=== PATIENT | male | born 1950 | race African-American/Black ===

== ENCOUNTER 2018-05-16 09:44 | Emergency (ER) | payer OTHER ==
[~2018-05-16] VITALS: Ht 177.8 cm; Wt 69.0 kg
[~2018-05-16 09:44] MED LIST: AMLODIPINE BESY10 MG; ASPIR 8181 MG PO; CARVEDILOL12.5 MG PO; COZAAR 25MG TAB25 M1 PO; NORCO 5-325 TA1 EACH PO; PENICILLIN V P500 MG PO; PREDNISONE50 MG PO; TESSALON PERLE100 MG PO; ZOCOR 10 MG TAB10 MG PO
[2018-05-16] MEDS ORDERED: CENTRUM SILVER1 EAC4 PO (09:57)
[2018-05-16 10:21] LABS: BASOPHILS 0.7 % (0.0-2.0); EOSINOPHILS 0.2 % (0.0-3.0); HEMATOCRIT 44.4 % (42.0-52.0); HEMOGLOBIN 15.3 gm/dL (14.0-18.0); MCH 30.3 pg (26.0-34.0); MCHC 34.4 g/dL (28.0-37.0); MCV 88.1 fL (80.0-100.0); MONOCYTES 9.5 % (1.0-8.0); PLATELET COUNT 242 thou/uL (150-400); POLYS 71.6 % (36.0-66.0); RBC 5.04 mil/uL (4.50-6.00); RDW 13.1 % (10.5-14.5)
[2018-05-16 10:29] LABS: URINE BILIRUBIN NEGATIVE (Negative); URINE BLOOD 1+ (Negative); URINE CLARITY CLEAR; URINE COLOR YELLOW; URINE GLUCOSE-RANDOM* NEGATIVE (Negative); URINE KETONES NEGATIVE (Negative); URINE LEUKOCYTES-REFLEX NEGATIVE (Negative); URINE NITRITE-REFLEX NEGATIVE (Negative); URINE PROTEIN (DIPSTICK) 1+ (Negative); URINE SPECIFIC GRAVITY 1.025 (1.005-1.035); URINE UROBILINOGEN 0.2 E.U./dl (0.2-1.0)
[2018-05-16 10:34] LABS: CALCIUM 9.7 mg/dL (8.5-10.1); CREATININE 1.4 mg/dL (0.7-1.3); POTASSIUM 3.5 mmol/L (3.5-5.1)
[2018-05-16 10:38] LABS: CASTS None Seen /LPF (None Seen); SQUAMOUS 0-3 Few /LPF (0-3)
[2018-05-16 10:39] LABS: ALBUMIN 4.4 g/dL (3.4-5.0); TOTAL BILIRUBIN 0.7 mg/dL (<0.1-1.0); TOTAL PROTEIN 8.8 g/dL (6.4-8.2)
[2018-05-16 10:39] LABS: BACTERIA-REFLEX 1-9 Few /HPF (None Seen); CRYSTALS None Seen /LPF (None Seen); MUCUS 4-6 Moderate strn/LPF (None Seen); URINE RBC 0-2 Rare /HPF (0-2); URINE WBC-REFLEX 0-5 Rare /HPF (0-5)
[2018-05-16 10:45] LABS: AMP/METHAMP Negative (Negative); BARBITURATES Negative (Negative); BENZODIAZEPINES Negative (Negative); COCAINE Negative (Negative); METHADONE Negative (Negative); OPIATES Negative (Negative); PCP Negative (Negative)
[2018-05-16] MEDS ORDERED: NORCO 5-325 TA1 EACH PO (11:30)
[2018-05-16] MEDS ORDERED: CARAFATE 1 GM TA1 G1 PO (11:30)
[2018-05-16] MEDS ORDERED: PEPCID20 MG PO (11:30)
[2018-05-16] MEDS ORDERED: ONDANSETRON HCL4 M2 PO (11:30)
[2018-05-16 11:47] VITALS: BP 126/74
== END 2018-05-16 11:56 | disposition home or self-care (01) ==
LOC: ER 09:44
PROVIDERS: Physician Assistant
DX: T39.311A Poisoning by propionic acid derivatives, accidental (unintentional), initial encounter (principal); K29.70 Gastritis, unspecified, without bleeding; Y92.89 Other specified places as the place of occurrence of the external cause; N17.9 Acute kidney failure, unspecified; K08.89 Other specified disorders of teeth and supporting structures; E78.00 Pure hypercholesterolemia, unspecified; I10 Essential (primary) hypertension; M13.88 Other specified arthritis, other site; F17.210 Nicotine dependence, cigarettes, uncomplicated